=== PATIENT | female | born 1975 | race Hispanic/Latino ===

== ENCOUNTER → 2023-10-17 | Outpatient (CLI) | payer BC | END | disposition home or self-care (01) | LOC: SHCH 15:22 → EDUNIT# 15:30 | PROVIDERS: ATTEND Student in an Organized Health Care Education/Training Program | DX: R07.89 Other chest pain (principal); I87.1 Compression of vein; R94.31 Abnormal electrocardiogram [ECG] [EKG]; Z79.899 Other long term (current) drug therapy; Z82.49 Family history of ischemic heart disease and other diseases of the circulatory system | CPT/HCPCS: 93306 ==

== ENCOUNTER → 2023-10-28 | Outpatient (CLI) | payer BC ==
[~2023-10-28] MED LIST: IOHEXOL 350 MG/ML 100ML INFUS..BTL IV ONE; METOPROLOL TARTRATE 1 MG/ML 5ML VIAL IV ONE
== END | disposition home or self-care (01) ==
LOC: EDUNIT# 10-22 08:00 → RAH 10-22 08:09
PROVIDERS: ATTEND Student in an Organized Health Care Education/Training Program
DX: I25.10 Atherosclerotic heart disease of native coronary artery without angina pectoris (principal); Z82.49 Family history of ischemic heart disease and other diseases of the circulatory system
CPT/HCPCS: 75574; J3490; Q9967